=== PATIENT | female | born 1980 | race African-American/Black ===

== ENCOUNTER 2021-09-04 09:20 | Outpatient (CLI) | payer OTHER | END 2021-09-04 09:24 | disposition home or self-care (01) | LOC: PPH VACUNA 09:20 | PROVIDERS: ATTEND Emergency Medicine Pediatric Emergency Medicine | DX: Z23 Encounter for immunization (principal) ==

== ENCOUNTER 2024-10-23 23:52 | Emergency (ER) | payer OTHER ==
[~2024-10-23] VITALS: Ht 160 cm; Wt 64.4 kg
[2024-10-24 00:17] VITALS: BP 118/70; O2SAT 100
[2024-10-24] MEDS ORDERED: KETOROLAC TROMETHAMINE 60 MG VIAL IM STA (01:08)
[2024-10-24] MEDS ORDERED: METHYLPREDNISOLONE SOD SUCC 125 MG VIAL IM STA (01:08)
[2024-10-24] MEDS ORDERED: ANUSOL-HC30 G2 TOP (01:12)
[2024-10-24] MEDS ORDERED: KETO10TA2 PO (01:15)
== END 2024-10-24 01:21 ==
LOC: ER 23:55
DX: K64.4 Residual hemorrhoidal skin tags (principal)